=== PATIENT | female | born 1955 | race Two or more races ===

== ENCOUNTER 2017-09-15 11:42 | Emergency (ER) | payer OTHER ==
[~2017-09-15] VITALS: Ht 157.5 cm; Wt 95.3 kg
[~2017-09-15 11:42] MED LIST: ADVAIR 5001 DISK W/1; ALBUTEROL0.63 MG/3; COZAAR25 MG; DIOVAN HCT 160-1 TAB; LEVSIN0.125 MG PO; MEDROLPACK PO; METFORMIN HYDRO25 GM; NORVASC2.5 MG; PROTONIX40 MG PO; SYMBICORT 16010.2 GM; ZANTAC300 MG PO
[2017-09-15] MEDS ORDERED: ADVAIR HFA 230/12 GM (12:05)
== END 2017-09-15 17:26 ==
LOC: ER 11:42
DX: J32.0 Chronic maxillary sinusitis (principal); R42 Dizziness and giddiness

== ENCOUNTER 2018-08-12 11:31 | Emergency (ER) | payer OTHER ==
[~2018-08-12] VITALS: Ht 157.5 cm; Wt 95.3 kg
[~2018-08-12 11:31] MED LIST changes: +ADVAIR HFA 230/12 GM
== END 2018-08-12 18:08 | disposition home or self-care (01) ==
LOC: ER 11:31
DX: M54.5 Low back pain (principal)

== ENCOUNTER 2019-04-21 00:57 | Emergency (ER) | payer OTHER ==
[~2019-04-21] VITALS: Ht 157.5 cm; Wt 97.5 kg
[2019-04-21] MEDS ORDERED: GLIMEPIRIDE1 M1 (01:05)
[2019-04-21] MEDS ORDERED: ONDANSETRON ODT4 MG PO (16:31)
[2019-04-21] MEDS ORDERED: LEVSIN/SL0.125 MG SL (16:31)
[2019-04-21] MEDS ORDERED: PEPCID AC20 MG PO (16:31)
== END 2019-04-21 17:00 | disposition home or self-care (01) ==
LOC: ER 00:57
DX: K57.90 Diverticulosis of intestine, part unspecified, without perforation or abscess without bleeding (principal); K44.9 Diaphragmatic hernia without obstruction or gangrene; R10.13 Epigastric pain

== ENCOUNTER 2021-01-26 15:00 | Outpatient (CLI) | payer OTHER ==
[~2021-01-26 15:00] MED LIST changes: +GLIMEPIRIDE1 M1; +LEVSIN/SL0.125 MG SL; +ONDANSETRON ODT4 MG PO; +PEPCID AC20 MG PO
== END 2021-01-26 15:20 | disposition home or self-care (01) ==
LOC: PPH VACUNA 15:00
PROVIDERS: ATTEND Emergency Medicine Pediatric Emergency Medicine
DX: Z23 Encounter for immunization (principal)

== ENCOUNTER 2021-11-01 16:08 | Emergency (ER) | payer OTHER ==
[~2021-11-01] VITALS: Ht 157.5 cm; Wt 97.1 kg
[2021-11-01] MEDS ORDERED: SIMVASTATIN5 MG (16:28)
== END 2021-11-01 21:48 | disposition home or self-care (01) ==
LOC: ER 16:08
DX: R10.9 Unspecified abdominal pain (principal); Z88.6 Allergy status to analgesic agent; Z88.0 Allergy status to penicillin; J45.909 Unspecified asthma, uncomplicated; I10 Essential (primary) hypertension; E78.00 Pure hypercholesterolemia, unspecified; K57.30 Diverticulosis of large intestine without perforation or abscess without bleeding; K76.0 Fatty (change of) liver, not elsewhere classified

== ENCOUNTER 2023-11-06 06:36 | Emergency (ER) | payer OTHER ==
[~2023-11-06] VITALS: Ht 157.5 cm; Wt 89.8 kg
[~2023-11-06 06:36] MED LIST changes: +SIMVASTATIN5 MG
[2023-11-06] MEDS ORDERED: GLUMETZA500 MG PO (06:47)
[2023-11-06] MEDS ORDERED: ATORVASTATIN CA20 MG PO (06:47)
[2023-11-06] MEDS ORDERED: JANUVIA25 MG (06:47)
[2023-11-06] MEDS ORDERED: RINGERS SOLUTION,LACTATED 1,000 ML IV STA (07:19)
[2023-11-06] MEDS ORDERED: PROMETHAZINE HCL 25 MG/ML AMPUL IM STA (07:20)
[2023-11-06] MEDS ORDERED: MEPERIDINE HCL/PF 25 MG/ML VIAL IM STA (07:20)
[2023-11-06] MEDS ORDERED: BARIUM SULFATE 450 ML ORAL.SUSP PO ONE (07:32)
[2023-11-06] MEDS ORDERED: PROMETHAZINE HCL 25 MG/ML AMPUL ONE (07:33)
[2023-11-06 07:48] LABS: HEMATOCRIT 39.1 % (36.0-45.00); HEMOGLOBIN 13.1 g/dL (12.0-15.00); MEAN CELL VOLUME 87.2 fL (80.00-100.00); MEAN CORPUSCULAR HEMOGLOBIN 29.3 pg (27.00-32.0); MEAN CORPUSCULAR HGB CONC 33.5 g/dl (32.0-36.0); PLATELET COUNT 279 K/uL (150-450); RED BLOOD COUNT 4.49 M/uL (4.00-6.00); RED CELL DISTRIBUTION WIDTH 14.9 % (11.5-14.5)
[2023-11-06 08:21] LABS: CALCIUM 9.7 mg/dL (8.5-10.1); CREATININE SERUM 0.89 mg/dL (0.55-1.02); GFR 63.07; POTASSIUM 3.93 mEq/L (3.5-5.1)
== END 2023-11-06 12:16 | disposition home or self-care (01) ==
LOC: ER 06:37
DX: R10.32 Left lower quadrant pain (principal); R10.9 Unspecified abdominal pain; Z88.0 Allergy status to penicillin; Z88.6 Allergy status to analgesic agent
CPT/HCPCS: 36415; 74177; 96372; 99284; J3490 ×2; Q9965